=== PATIENT | female | born 1960 | race Caucasian/White ===

== ENCOUNTER 2023-08-28 16:31 | Inpatient (IN) | payer BC ==
[2023-08-28 16:36] LABS: BASOPHILS ABSOLUTE AUTO 0.05 10^3/uL (0.00-0.50); BASOPHILS PERCENT AUTO 0.3 % (0-1); EOSINOPHILS ABSOLUTE AUTO 0.01 10^3/uL (0.00-1.50); EOSINOPHILS PERCENT AUTO 0.1 % (0-6); HEMATOCRIT 37.2 % (37.0-47.0); HEMOGLOBIN 12.4 g/dL (12.0-16.0); IMMATURE GRAN ABSOLUTE AUTO 0.02 10^3/uL (0.00-0.49); IMMATURE GRAN PERCENT AUTO 0.1 % (0.0-4.9); LYMPHOCYTES PERCENT AUTO 9.6 % (24-44); MEAN CORPUSCULAR HEMOGLOBIN 31.8 pg (27.0-32.0); MEAN CORPUSCULAR HGB CONC 33.3 g/dL (32.0-36.0); MEAN CORPUSCULAR VOLUME 95.4 fL (83.0-97.0); MONOCYTES ABSOLUTE AUTO 1.62 10^3/uL (0.00-1.50); MONOCYTES PERCENT AUTO 8.1 % (0-10); NEUTROPHILS ABSOLUTE AUTO 16.28 x10^3/uL (1.80-8.00); NEUTROPHILS PERCENT AUTO 81.8 % (41-71); PLATELET COUNT,PLT 337 10^3/uL (150-400); WHITE BLOOD CELL COUNT,WBC 19.9 10^3/uL (4.0-11.0)
[2023-08-28 16:43] LABS: BLOOD UREA NITROGEN,BUN 13 mg/dL (7-18); C-REACTIVE PROTEIN 6.05 mg/dL (<=0.50); CARBON DIOXIDE,CO2 26 mmol/L (21-32); CHLORIDE,CL 100 mEq/L (98-106); CREATININE 0.8 mg/dL (0.6-1.0); GLUCOSE RANDOM 111 mg/dL (75-99); POTASSIUM,K 3.3 mEq/L (3.5-5.0); SODIUM,NA 138 mEq/L (136-145)
[2023-08-28 16:47] LABS: ESTIMATED GFR 83 mL/min (>=60)
[2023-08-28] MEDS ORDERED: Albuterol/Ipratropium 3.0-0.5 MG/3 ML Neb Soln NEB PRN (17:27)
[2023-08-28] MEDS ORDERED: Temazepam 15 MG Cap PO PRN (17:27)
[2023-08-28] MEDS ORDERED: Docusate Sodium 100 MG Cap PO PRN (17:27)
[2023-08-28] MEDS ORDERED: Ondansetron 4 MG/2 ML SDV IV PRN (17:27)
[2023-08-28] MEDS ORDERED: Sodium Chloride 0.9% 10 ML Syringe FLUSH PRN (17:27)
[2023-08-28] MEDS: Ibuprofen 200 MG Tab PO PRN (17:54)
[2023-08-28] MEDS: Ondansetron 4 MG Tab.DIS PO PRN (17:55)
[2023-08-28] MEDS: Sodium Chloride 0.9% 1,000 ML IV SCH (17:56)
[2023-08-28] MEDS: Levofloxacin/Dextrose 5%-Water 750 MG in Premix Bag 1 BAG IV SCH (17:58)
[2023-08-28] MEDS ORDERED: methylPREDNISolone Sodium Succinate 40 MG/1 ML SDV IVPUSH SCH (18:00)
[2023-08-28 18:49] LABS: LACTIC ACID 0.9 mmol/L (0.4-2.0)
[2023-08-28] MEDS: guaiFENesin 200 MG Tab PO SCH (19:00)
[2023-08-28] MEDS: Acetaminophen 325 MG Tab PO PRN (19:01)
[2023-08-29 07:17] LABS: APPEARANCE,URINE CLEAR (CLEAR); BILIRUBIN,URINE NEGATIVE (NEGATIVE); COLOR,URINE YELLOW (YELLOW); GLUCOSE,URINE NEGATIVE (NEGATIVE); KETONES,URINE TRACE mg/dL (NEGATIVE); LEUKOCYTE ESTERASE,URINE NEGATIVE (NEGATIVE); NITRITE,URINE NEGATIVE (NEGATIVE); OCCULT BLOOD,URINE MODERATE (NEGATIVE); PH,URINE 5.5 (4.5-8.0); PROTEIN,URINE NEGATIVE (NEGATIVE); UROBILINOGEN,URINE 0.2 EU/dL (0.2-1.0)
[2023-08-29] MEDS: Potassium Gluconate (99 MG) 2 MEQ Tab PO SCH (07:24)
[2023-08-29] MEDS: methylPREDNISolone Sodium Succinate 40 MG/1 ML SDV IVPUSH SCH (07:25)
[2023-08-29] MEDS: Lactobacillus Rhamnosus GG (Probiotic) Cap PO SCH (07:25)
[2023-08-29 07:29] LABS: EPITHELIAL CELLS,URINE FEW /HPF (NOT SEEN); WBC,URINE NOT SEEN /HPF (0-5)
[2023-08-29 07:30] LABS: BACTERIA,URINE NOT SEEN /HPF (NOT SEEN); MUCUS,URINE OCCASIONAL /HPF (NOT SEEN)
[2023-08-29 07:35] LABS: BASOPHILS ABSOLUTE AUTO 0.04 10^3/uL (0.00-0.50); BASOPHILS PERCENT AUTO 0.2 % (0-1); EOSINOPHILS ABSOLUTE AUTO 0.07 10^3/uL (0.00-1.50); EOSINOPHILS PERCENT AUTO 0.4 % (0-6); HEMATOCRIT 33.8 % (37.0-47.0); HEMOGLOBIN 11.2 g/dL (12.0-16.0); IMMATURE GRAN ABSOLUTE AUTO 0.03 10^3/uL (0.00-0.49); IMMATURE GRAN PERCENT AUTO 0.2 % (0.0-4.9); LYMPHOCYTES ABSOLUTE AUTO 2.51 10^3/uL (0.60-5.00); LYMPHOCYTES PERCENT AUTO 14.1 % (24-44); MEAN CORPUSCULAR HEMOGLOBIN 32.1 pg (27.0-32.0); MEAN CORPUSCULAR HGB CONC 33.1 g/dL (32.0-36.0); MEAN CORPUSCULAR VOLUME 96.8 fL (83.0-97.0); MONOCYTES ABSOLUTE AUTO 1.85 10^3/uL (0.00-1.50); MONOCYTES PERCENT AUTO 10.4 % (0-10); NEUTROPHILS ABSOLUTE AUTO 13.34 x10^3/uL (1.80-8.00); NEUTROPHILS PERCENT AUTO 74.7 % (41-71); PLATELET COUNT,PLT 248 10^3/uL (150-400); RED BLOOD CELL COUNT 3.49 x10^6/uL (4.00-5.50); WHITE BLOOD CELL COUNT,WBC 17.8 10^3/uL (4.0-11.0)
[2023-08-29 07:42] LABS: C-REACTIVE PROTEIN 9.9 mg/dL (<=0.50); CALCIUM 8.3 mg/dL (8.4-10.1); CREATININE 0.7 mg/dL (0.6-1.0); EST CRCL DRUG DOSING (CG) 70.39 mL/min; POTASSIUM,K 3.4 mEq/L (3.5-5.0)
[2023-08-29] MEDS: Enoxaparin 40 MG/0.4 ML Syringe SUBCUT SCH (12:25)
[2023-08-29] MEDS: Nicotine 21 MG/24 Hr Patch TRDERM SCH (16:24)
[2023-08-30 07:38] LABS: BASOPHILS ABSOLUTE AUTO 0.04 10^3/uL (0.00-0.50); BASOPHILS PERCENT AUTO 0.3 % (0-1); EOSINOPHILS ABSOLUTE AUTO 0.07 10^3/uL (0.00-1.50); EOSINOPHILS PERCENT AUTO 0.5 % (0-6); HEMATOCRIT 31.4 % (37.0-47.0); HEMOGLOBIN 10.4 g/dL (12.0-16.0); IMMATURE GRAN ABSOLUTE AUTO 0.03 10^3/uL (0.00-0.49); IMMATURE GRAN PERCENT AUTO 0.2 % (0.0-4.9); LYMPHOCYTES ABSOLUTE AUTO 3.71 10^3/uL (0.60-5.00); LYMPHOCYTES PERCENT AUTO 27.3 % (24-44); MEAN CORPUSCULAR HEMOGLOBIN 32.1 pg (27.0-32.0); MEAN CORPUSCULAR HGB CONC 33.1 g/dL (32.0-36.0); MEAN CORPUSCULAR VOLUME 96.9 fL (83.0-97.0); MONOCYTES PERCENT AUTO 9.6 % (0-10); NEUTROPHILS ABSOLUTE AUTO 8.45 x10^3/uL (1.80-8.00); NEUTROPHILS PERCENT AUTO 62.1 % (41-71); PLATELET COUNT,PLT 316 10^3/uL (150-400); RED BLOOD CELL COUNT 3.24 x10^6/uL (4.00-5.50); WHITE BLOOD CELL COUNT,WBC 13.6 10^3/uL (4.0-11.0)
[2023-08-30 07:45] LABS: C-REACTIVE PROTEIN 7.09 mg/dL (<=0.50); CALCIUM 8.8 mg/dL (8.4-10.1); CREATININE 0.7 mg/dL (0.6-1.0); EST CRCL DRUG DOSING (CG) 70.39 mL/min; POTASSIUM,K 3.5 mEq/L (3.5-5.0)
== END 2023-08-30 09:25 | disposition home or self-care (01) | DRG 139 ==
LOC: CC.FCMC 16:31 → CC.DI 16:31 → CC.MS 17:01 → UNDOADMIN 17:01 → CC.MS 17:27
PROVIDERS: ADMIT Nurse Practitioner Family; ATTEND Nurse Practitioner Family
DX: J18.9 Pneumonia, unspecified organism (principal); F17.210 Nicotine dependence, cigarettes, uncomplicated; D72.825 Bandemia; E86.0 Dehydration; J20.9 Acute bronchitis, unspecified; Z79.899 Other long term (current) drug therapy; Z98.891 History of uterine scar from previous surgery
CPT/HCPCS: 36415; 71046; 80048; 81001; 83605; 84145; 85025; 86140; 87040; 87804; 97161-GP; A9270-GY; J1650; J1956; J2920; J7030; U0002

== ENCOUNTER 2023-12-11 23:46 | Emergency (ER) | payer BC ==
[2023-12-12 00:18] LABS: BASOPHILS ABSOLUTE AUTO 0.06 10^3/uL (0.00-0.50); BASOPHILS PERCENT AUTO 0.5 % (0-1); EOSINOPHILS PERCENT AUTO 1.6 % (0-6); HEMATOCRIT 35.9 % (37.0-47.0); HEMOGLOBIN 11.9 g/dL (12.0-16.0); IMMATURE GRAN ABSOLUTE AUTO 0.01 10^3/uL (0.00-0.49); IMMATURE GRAN PERCENT AUTO 0.1 % (0.0-4.9); LYMPHOCYTES ABSOLUTE AUTO 2.75 10^3/uL (0.60-5.00); LYMPHOCYTES PERCENT AUTO 21.7 % (24-44); MEAN CORPUSCULAR HGB CONC 33.1 g/dL (32.0-36.0); MEAN CORPUSCULAR VOLUME 96.5 fL (83.0-97.0); MONOCYTES ABSOLUTE AUTO 0.83 10^3/uL (0.00-1.50); MONOCYTES PERCENT AUTO 6.5 % (0-10); NEUTROPHILS ABSOLUTE AUTO 8.84 x10^3/uL (1.80-8.00); NEUTROPHILS PERCENT AUTO 69.6 % (41-71); PLATELET COUNT,PLT 319 10^3/uL (150-400); RED BLOOD CELL COUNT 3.72 x10^6/uL (4.00-5.50); WHITE BLOOD CELL COUNT,WBC 12.7 10^3/uL (4.0-11.0)
[2023-12-12 00:30] LABS: APPEARANCE,URINE CLEAR (CLEAR); BILIRUBIN,URINE NEGATIVE (NEGATIVE); COLOR,URINE LIGHT YELLOW (YELLOW); GLUCOSE,URINE NEGATIVE (NEGATIVE); KETONES,URINE NEGATIVE (NEGATIVE); LEUKOCYTE ESTERASE,URINE NEGATIVE (NEGATIVE); NITRITE,URINE NEGATIVE (NEGATIVE); OCCULT BLOOD,URINE NEGATIVE (NEGATIVE); PROTEIN,URINE NEGATIVE (NEGATIVE); UROBILINOGEN,URINE 0.2 EU/dL (0.2-1.0)
[2023-12-12 00:34] LABS: ALANINE AMINOTRANSFERASE,ALT 10 U/L (12-78); ALBUMIN 3.9 g/dL (3.4-5.0); ALKALINE PHOSPHATASE 59 U/L (46-116); ASPARTATE AMNIOTRANSFERASE,AST 15 U/L (15-37); BILIRUBIN TOTAL 0.2 mg/dL (0.0-1.0); BLOOD UREA NITROGEN,BUN 15 mg/dL (7-18); C-REACTIVE PROTEIN < 0.50 mg/dL (<=0.50); CALCIUM 9.3 mg/dL (8.4-10.1); CARBON DIOXIDE,CO2 30 mmol/L (21-32); CHLORIDE,CL 103 mEq/L (98-106); CREATININE 0.9 mg/dL (0.6-1.0); ESTIMATED GFR 72 mL/min (>=60); GLUCOSE RANDOM 116 mg/dL (75-99); POTASSIUM,K 3.2 mEq/L (3.5-5.0); SODIUM,NA 140 mEq/L (136-145)
[2023-12-12] MEDS: Potassium Chloride 20 MEQ Tab.ER PO ONE (00:49)
== END 2023-12-12 01:05 | disposition home or self-care (01) ==
LOC: CC.ED 23:46
DX: E87.6 Hypokalemia (principal); T43.205A Adverse effect of unspecified antidepressants, initial encounter; Z79.899 Other long term (current) drug therapy
CPT/HCPCS: 36415; 71045; 80053; 81003; 83735; 84484; 85025; 86140; 93005; 99285; A9270; 93010; 99284